=== PATIENT | female | born 1970 | race Caucasian/White ===

== ENCOUNTER 2022-07-11 21:48 | Inpatient (IN) | payer OTHER ==
[~2022-07-11 21:48] MED LIST: Iopamidol-370 76% 500 ML 1 ML ONE
[2022-07-11 22:12] LABS: #Basophils 0.1 thou/uL (0.0-0.2); #Eosinphils 0.2 thou/uL (0.0-0.7); #Lymphocytes 2.9 thou/uL (1.20-3.40); #Monocytes 0.5 thou/uL (0.11-0.59); %Basophils 1.3 % (0.0-1.0); %Eosinophils 1.9 % (0.0-10.0); %Lymphocytes 33.6 % (21.0-51.0); %Monocytes 5.7 % (0.0-10.0); %Neutrophils 57.6 % (42.0-75.0); Hemoglobin 18.2 g/dL (12.0-16.0); Mean Corpuscular HGB CONC 31.8 g/dL (32.0-36.0); Mean Corpuscular Hemoglobin 33.5 pg (27.0-31.0); Mean Platelet Volume 9.6 fL (7.4-10.4); Platelet Count 132 10x3/uL (130-400); Red Blood Cell (RBC) Count 5.44 mill/uL (4.20-5.40); White Blood Cell (WBC) Count 8.6 10x3/uL (4.8-10.8)
[2022-07-11 22:19] LABS: BHCG - Serum Negative (NEGATIVE); Pregs Control Background? CLEAR/WHITE (CLR/WHITE); Pregs Control Bar Appear? YES (CONTROL BAR)
[2022-07-11 22:25] LABS: Prothrombin Time 13.8 sec (12.0-14.7)
[2022-07-11 22:29] LABS: Acetaminophen Less than 10.0 mcg/mL (10.0-30.0); Alcohol Less than 10 mg/dL (Less than 10); CK (CPK) 97 U/L (29-168); Magnesium 2.2 mg/dL (1.6-2.6); Salicylate Less than 8.0 mg/dL (15.0-30.0)
[2022-07-11 22:37] LABS: ALT (SGPT) 33 U/L (8-55); AST (SGOT) 30 U/L (5-34); Albumin 4.2 g/dL (3.5-5.0); Alkaline Phosphatase 121 U/L (40-110); Anion Gap 16 mmol/L (10-20); BUN (Urea Nitrogen) 22 mg/dL (9.8-20.1); Bilirubin, Total 1.3 mg/dL (0.2-1.2); Calc. Creatinine Clearance 0 mL/min (70-130); Calcium 9.6 mg/dL (7.8-10.44); Carbon Dioxide 19 mmol/L (22-29); Chloride 110 mmol/L (98-107); Estimated GFR 38; Glucose 132 mg/dL (70-105); Potassium 3.9 mmol/L (3.5-5.1); Protein, Total 7.2 g/dL (6.0-8.3); Sodium 141 mmol/L (136-145)
[2022-07-11] MEDS ORDERED: Adenosine 6 MG/2 ML VIAL ONE ×3 (22:48→22:55)
[2022-07-11 22:49] LABS: CKMB 2.8 ng/mL (0-6.6)
[2022-07-11] MEDS ORDERED: Magnesium 2 GM/50 ML BAG (IN WATER) ONE (22:50)
[2022-07-11 23:56] LABS: Bacteria/HPF None Seen HPF (None Seen); Bilirubin Negative (Negative); Blood, Urine Negative (Negative); Clarity Clear (Clear); Glucose, Urine (Dipstick) Normal (Negative); Ketone, Urine Negative (Negative); Leukocyte Negative Leu/uL (Negative); Nitrite Negative (Negative); Protein, Urine (Dipstick) 30 mg/dL (Neg-Trace); RBC/HPF 0-3 HPF (0-3); Specific Gravity, Urine 1.021 (1.002-1.036); Squamous Epithelial 0-3 HPF (0-3); Urobilinogen Normal mg/dL (Less than 2); WBC/HPF 0-3 HPF (0-3); pH, Urine 6.5 (5.0-9.0)
[2022-07-12 00:04] LABS: Amphetamine Not Detected (NotDetected); Barbiturates Screen Not Detected (NotDetected); Benzodiazepine Screen Not Detected (NotDetected); Cocaine Metabolite Screen Not Detected (NotDetected); Methadone Not Detected (NotDetected); Methamphetamine Detected (NotDetected); Opiate Screen Not Detected (NotDetected); Oxycodone Screen Not Detected (NotDetected); Phencyclidine (PCP) Not Detected (NotDetected); THC/Cannabinoid Screen Not Detected (NotDetected); Tricyclic Screen Not Detected (NotDetected)
[2022-07-12] MEDS ORDERED: Aspirin Chewable 81 MG TAB ONE (00:05)
[2022-07-12 00:46] LABS: Troponin I 0.061 ng/mL (< 0.028)
[2022-07-12] MEDS ORDERED: Ondansetron PF 4 MG/2 ML Vial IVP PRN (01:24)
[2022-07-12 01:46] LABS: SARS-CoV-2 NAA Rapid Test Not Detected (NotDetected)
[2022-07-12 02:36] LABS: Free T4 (Free Thyroxine) 1.13 ng/dL (0.70-1.48)
[2022-07-12 03:27] VITALS: BMI 26.0
[2022-07-12 04:10] LABS: #Basophils 0.1 thou/uL (0.0-0.2); #Eosinphils 0.1 thou/uL (0.0-0.7); #Lymphocytes 1.8 thou/uL (1.20-3.40); #Monocytes 0.6 thou/uL (0.11-0.59); #Neutrophils 5.2 thou/uL (1.40-6.50); %Basophils 1.1 % (0.0-1.0); %Eosinophils 1.3 % (0.0-10.0); %Lymphocytes 23.8 % (21.0-51.0); %Monocytes 7.3 % (0.0-10.0); %Neutrophils 66.6 % (42.0-75.0); Hemoglobin 15.2 g/dL (12.0-16.0); Mean Corpuscular HGB CONC 31.4 g/dL (32.0-36.0); Mean Corpuscular Hemoglobin 32.6 pg (27.0-31.0); Mean Platelet Volume 9.7 fL (7.4-10.4); Platelet Count 125 10x3/uL (130-400); Red Blood Cell (RBC) Count 4.66 mill/uL (4.20-5.40); White Blood Cell (WBC) Count 7.8 10x3/uL (4.8-10.8)
[2022-07-12 04:35] LABS: Anion Gap 11 mmol/L (10-20); BUN (Urea Nitrogen) 21 mg/dL (9.8-20.1); Calc. Creatinine Clearance 60 mL/min (70-130); Calcium 8.3 mg/dL (7.8-10.44); Carbon Dioxide 17 mmol/L (22-29); Chloride 113 mmol/L (98-107); Estimated GFR 60; Glucose 89 mg/dL (70-105); Potassium 4.1 mmol/L (3.5-5.1); Sodium 137 mmol/L (136-145)
[2022-07-12 04:42] LABS: Troponin I 0.049 ng/mL (< 0.028)
[2022-07-12] MEDS ORDERED: Digoxin 0.5 MG/2 ML AMP SLOW IVP SCH (05:15)
[2022-07-12 06:51] LABS: Magnesium 2.4 mg/dL (1.6-2.6)
[2022-07-12] MEDS: Terbinafine 250 MG TAB PO SCH (10:11)
[2022-07-12] MEDS ORDERED: TREPROSTINIL DIOLAMINE 0.125 MG PO SCH (10:15)
[2022-07-12] MEDS ORDERED: Tadalafil [Adcirca] 20 MG Tablet PO SCH (10:15)
[2022-07-12] MEDS ORDERED: TREPROSTINIL DIOLAMINE PO SCH (10:15)
[2022-07-12] MEDS: Enoxaparin Sodium 40 MG/0.4 ML SYRINGE SC SCH (11:27)
[2022-07-12] MEDS: Macitentan [Opsumit] 10 MG Tablet PO SCH (16:26)
[2022-07-12] MEDS: TREPROSTINIL DIOLAMINE PO SCH ×2 (16:26→22:12)
[2022-07-12] MEDS: TREPROSTINIL DIOLAMINE 0.125 MG PO SCH ×2 (16:27→22:16)
[2022-07-13] MEDS: Acetaminophen 325 MG TAB PO PRN ×2 (00:07→04:34)
[2022-07-13 06:20] LABS: ALT (SGPT) 27 U/L (8-55); AST (SGOT) 22 U/L (5-34); Albumin 3.7 g/dL (3.5-5.0); Alkaline Phosphatase 92 U/L (40-110); Anion Gap 11 mmol/L (10-20); BUN (Urea Nitrogen) 21 mg/dL (9.8-20.1); Bilirubin, Total 0.7 mg/dL (0.2-1.2); Calc. Creatinine Clearance 57 mL/min (70-130); Calcium 8.8 mg/dL (7.8-10.44); Carbon Dioxide 19 mmol/L (22-29); Chloride 112 mmol/L (98-107); Estimated GFR 52; Globulin 2.2 g/dL (2.4-3.5); Glucose 126 mg/dL (70-105); Magnesium 1.8 mg/dL (1.6-2.6); Potassium 4.2 mmol/L (3.5-5.1); Protein, Total 5.9 g/dL (6.0-8.3); Sodium 138 mmol/L (136-145)
[2022-07-13 06:23] LABS: Troponin I 0.053 ng/mL (< 0.028)
[2022-07-13 06:28] LABS: #Basophils 0.1 thou/uL (0.0-0.2); #Eosinphils 0.2 thou/uL (0.0-0.7); #Lymphocytes 1.8 thou/uL (1.20-3.40); #Monocytes 0.5 thou/uL (0.11-0.59); #Neutrophils 4.1 thou/uL (1.40-6.50); %Basophils 1.3 % (0.0-1.0); %Eosinophils 3.2 % (0.0-10.0); %Lymphocytes 26.4 % (21.0-51.0); %Monocytes 7.7 % (0.0-10.0); %Neutrophils 61.4 % (42.0-75.0); Hemoglobin 15.9 g/dL (12.0-16.0); Mean Corpuscular HGB CONC 32.5 g/dL (32.0-36.0); Mean Corpuscular Hemoglobin 33.8 pg (27.0-31.0); Mean Platelet Volume 9.9 fL (7.4-10.4); Platelet Count 98 10x3/uL (130-400); Red Blood Cell (RBC) Count 4.72 mill/uL (4.20-5.40); White Blood Cell (WBC) Count 6.6 10x3/uL (4.8-10.8)
[2022-07-13] MEDS: Potassium Chloride 10 MEQ TAB PO SCH (08:44)
[2022-07-13] MEDS: Enoxaparin Sodium 40 MG/0.4 ML SYRINGE SC SCH (08:44)
[2022-07-13] MEDS: TREPROSTINIL DIOLAMINE PO SCH ×3 (08:45→19:50)
[2022-07-13] MEDS: Terbinafine 250 MG TAB PO SCH (08:45)
[2022-07-13] MEDS: Furosemide 20 MG TAB PO SCH (08:45)
[2022-07-13] MEDS: Ferrous Sulfate 325 MG TAB PO SCH (08:45)
[2022-07-13] MEDS: TREPROSTINIL DIOLAMINE 0.125 MG PO SCH ×3 (08:46→19:50)
[2022-07-13] MEDS: Tadalafil [Adcirca] 20 MG Tablet PO SCH (08:50)
[2022-07-13] MEDS: Macitentan [Opsumit] 10 MG Tablet PO SCH (13:37)
[2022-07-14 06:14] LABS: Anion Gap 11 mmol/L (10-20); BUN (Urea Nitrogen) 17 mg/dL (9.8-20.1); Calc. Creatinine Clearance 73 mL/min (70-130); Calcium 8.7 mg/dL (7.8-10.44); Carbon Dioxide 20 mmol/L (22-29); Chloride 111 mmol/L (98-107); Estimated GFR 69; Glucose 90 mg/dL (70-105); Magnesium 1.8 mg/dL (1.6-2.6); Potassium 3.8 mmol/L (3.5-5.1); Sodium 138 mmol/L (136-145)
[2022-07-14] MEDS: Tadalafil [Adcirca] 20 MG Tablet PO SCH (08:16)
[2022-07-14] MEDS: Enoxaparin Sodium 40 MG/0.4 ML SYRINGE SC SCH (08:16)
[2022-07-14] MEDS: TREPROSTINIL DIOLAMINE 0.125 MG PO SCH ×3 (08:17→20:14)
[2022-07-14] MEDS: TREPROSTINIL DIOLAMINE PO SCH ×3 (08:17→20:13)
[2022-07-14] MEDS: Terbinafine 250 MG TAB PO SCH (08:18)
[2022-07-14] MEDS: Macitentan [Opsumit] 10 MG Tablet PO SCH (14:17)
[2022-07-14] MEDS: Acetaminophen 325 MG TAB PO PRN (20:14)
[2022-07-15] MEDS: TREPROSTINIL DIOLAMINE 0.125 MG PO SCH ×3 (08:33→20:03)
[2022-07-15] MEDS: TREPROSTINIL DIOLAMINE PO SCH ×3 (08:34→20:03)
[2022-07-15] MEDS: Enoxaparin Sodium 40 MG/0.4 ML SYRINGE SC SCH ×2 (08:35→11:49)
[2022-07-15] MEDS: Ferrous Sulfate 325 MG TAB PO SCH (08:36)
[2022-07-15] MEDS: Furosemide 20 MG TAB PO SCH (08:36)
[2022-07-15] MEDS: Tadalafil [Adcirca] 20 MG Tablet PO SCH (08:37)
[2022-07-15] MEDS: Potassium Chloride 10 MEQ TAB PO SCH (08:38)
[2022-07-15] MEDS: Terbinafine 250 MG TAB PO SCH (08:38)
[2022-07-15] MEDS ORDERED: FLU VACC QS2022-23(6MOS UP)/PF 60 MCG/0.5 ML SYRINGE IM ONE (09:00)
[2022-07-15 09:09] LABS: Hemoglobin 17.2 g/dL (12.0-16.0); Platelet Count 128 10x3/uL (130-400)
[2022-07-15] MEDS: Macitentan [Opsumit] 10 MG Tablet PO SCH (14:44)
[2022-07-15] MEDS: Flecainide 50 MG TAB PO SCH (20:03)
[2022-07-15] MEDS: Acetaminophen 325 MG TAB PO PRN (21:18)
[2022-07-16] MEDS: Terbinafine 250 MG TAB PO SCH (08:11)
[2022-07-16] MEDS: Flecainide 50 MG TAB PO SCH (08:11)
[2022-07-16] MEDS: Enoxaparin Sodium 40 MG/0.4 ML SYRINGE SC SCH (08:11)
[2022-07-16] MEDS: TREPROSTINIL DIOLAMINE 0.125 MG PO SCH (08:12)
[2022-07-16] MEDS: TREPROSTINIL DIOLAMINE PO SCH (08:12)
[2022-07-16] MEDS: Tadalafil [Adcirca] 20 MG Tablet PO SCH (08:13)
[2022-07-16 08:37] VITALS: BP 134/78; TEMP 98
== END 2022-07-16 11:20 | disposition home or self-care (01) | DRG 309 ==
LOC: ERS 21:48 → NEURO 23:50 → OBSVTOIN 07-13 13:50 → 2SW 07-13 15:54
PROVIDERS: ADMIT Family Medicine; ATTEND Family Medicine
DX: I47.1 Supraventricular tachycardia (principal); I50.32 Chronic diastolic (congestive) heart failure; J96.11 Chronic respiratory failure with hypoxia; Z20.822 Contact with and (suspected) exposure to COVID-19; I48.0 Paroxysmal atrial fibrillation; I49.3 Ventricular premature depolarization; I45.10 Unspecified right bundle-branch block; F17.210 Nicotine dependence, cigarettes, uncomplicated; I27.21 Secondary pulmonary arterial hypertension; F15.10 Other stimulant abuse, uncomplicated; I08.3 Combined rheumatic disorders of mitral, aortic and tricuspid valves; I48.92 Unspecified atrial flutter; Z99.81 Dependence on supplemental oxygen; Z79.899 Other long term (current) drug therapy; Z79.82 Long term (current) use of aspirin; Z82.49 Family history of ischemic heart disease and other diseases of the circulatory system
CPT/HCPCS: 36415; 71045; 71275; 80048; 80053; 80306; 80307; 81003; 81015; 82550; 82553; 83605; 83735; 83880; 84439; 84443; 84481; 84484; 84703; 85014; 85018; 85025; 85049; 85610; 85730; 93005; 93010; 93306; 96372; 96374; 96375; G0378; J0153; J1160; J1650; J3475; Q9967